=== PATIENT | male | born 1945 | race Caucasian/White ===

== ENCOUNTER 2025-01-26 09:23 | Outpatient (CLI) | payer MEDICARE, SELFPAY ==
--- NOTE | 2025-01-26 11:00 | NEURO_ITS ---
Impression: # Diabetic with gate dysfunction ? # Severe axonal neuropathy ? # No response from motor/sensory nerves ? # Needle/ EMG exam neurogenic with no fibs. Changes more pronounced distally. Nerve Conduction Studies ?Stim Site NR Peak (ms) P-T Amp (?V) Site1 Site2 Delta-P (ms) Dist (cm) Bill (m/s) Left Sup Fibular Anti Sensory (Ant Lat Mall)??? NO RESPONSE 14 cm NR 14 cm Ant Lat Mall 16.0 Right Sup Fibular Anti Sensory (Ant Lat Mall)??? NO RESPONSE 14 cm NR 14 cm Ant Lat Mall 16.0 Left Sural Anti Sensory (Lat Mall)??? NO RESPONSE Calf NR Calf Lat Mall 16.0 Right Sural Anti Sensory (Lat Mall)??? NO RESPONSE Calf ? 2.7 15.7 Calf Lat Mall 2.7 16.0 59 ?Stim Site NR Onset (ms) O-P Amp (mV) Site1 Site2 Delta-0 (ms) Dist (cm) Bill (m/s) Left Peroneal Motor (Vastus Med)??? NO RESPONSE Ankle NR Popit Ankle 0.0 Popit NR Right Peroneal Motor (Vastus Med)??? NO RESPONSE Ankle NR Popit Ankle 0.0 Popit NR Left Tibial Motor (Abd Huitron Brev)??? NO RESPONSE Ankle NR Knee Ankle 0.0 Knee NR Right Tibial Motor (Abd Huitron Brev)??? NO RESPONSE Ankle NR Knee NR Electromyography ?Side Muscle Nerve Root Ins Act Fibs Amp Dur Recrt Comment Right AntTibialis Dp Br Fibular L4-5 Nml Nml Nml >12ms +2 Right Gastroc Tibial S1-2 Nml Nml Nml >12ms +2 Right Fibularis Long Sup Br Fibular L5-S1 Nml Nml Nml >12ms +2 Right Flex Dig Long Tibial L5-S2 Nml Nml Nml >12ms +2 Right Ext Dig Brev Dp Br Fibular L5, S1 Nml Nml Nml >12ms +3 Right QuadratusFem QuadFemoris L4-5, S1 Nml Nml Nml >12ms +1 Left AntTibialis Dp Br Fibular L4-5 Nml Nml Nml >12ms +2 Left Gastroc Tibial S1-2 Nml Nml Nml >12ms +2 Left Fibularis Long Sup Br Fibular L5-S1 Nml Nml Nml >12ms +2 Left Flex Dig Long Tibial L5-S2 Nml Nml Nml >12ms +2 Left Ext Dig Brev Dp Br Fibular L5, S1 Nml Nml Nml >12ms +3 Left QuadratusFem QuadFemoris L4-5, S1 Nml Nml Nml >12ms +1
== END 2025-01-26 09:24 | disposition home or self-care (01) ==
LOC: ANHNEURO 09:27
PROVIDERS: PCP Family Medicine; Visit Provider Family Medicine
DX: G62.9 Polyneuropathy, unspecified (principal); R26.9 Unspecified abnormalities of gait and mobility; E11.40 Type 2 diabetes mellitus with diabetic neuropathy, unspecified
CPT/HCPCS: 95886; 95910